=== PATIENT | male | born 1995 | race Caucasian/White ===

== ENCOUNTER 2018-05-11 17:37 | Emergency (ER) | payer OTHER ==
--- NOTE | 2018-05-11 18:07 | ER Document Report ---
HPI - HPI Patient complains to provider of: Laceration to left knee Time Seen by Provider: 05/11/18 17:53 Onset: Other - 05/01/2018 Quality of pain: Achy Pain Level: 1 Context: Patient states that he cut his left knee with a chain saw on 05/01/2018. Patient states that he initially had the 3 separate lacerations sutured. 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 Patient states that sutures were removed yesterday and then 2 of the lacerations opened up. Patient states he is here to have the wound resutured. Patient's tetanus immunization is currently up-to-date. Associated Symptoms: Other - Wound dehiscence Exacerbated by: Movement Relieved by: Denies Similar symptoms previously: No Recently seen / treated by doctor: Yes - ROS ROS below otherwise negative: Yes Systems Reviewed and Negative: Yes All other systems reviewed and negative - CONSTITUTIONAL Constitutional: DENIES: Fever - NEURO Neurology: DENIES: Weakness - MUSCULOSKELETAL Musculoskeletal: REPORTS: Extremity pain - DERM Skin Problems: Laceration Past Medical History - General Information source: Patient - Social History Smoking Status: Never Smoker Frequency of alcohol use: None Drug Abuse: None Occupation: Active duty Lives with: Spouse/Significant other Family History: Reviewed & Not Pertinent - Medical History Medical History: Negative Surgical Hx: Negative - Immunizations Hx Diphtheria, Pertussis, Tetanus Vaccination: Yes Vertical Provider Document - CONSTITUTIONAL Agree With Documented VS: Yes General Appearance: WD/WN, No Apparent Distress - INFECTION CONTROL TRAVEL OUTSIDE OF THE [place] IN LAST 30 DAYS: No - HEENT HEENT: Atraumatic, Normocephalic - NECK Neck: Normal Inspection - RESPIRATORY Respiratory: No Respiratory Distress - BACK Back: Normal Inspection - MUSCULOSKELETAL/EXTREMETIES Musculoskeletal/Extremeties: MAEW, Tender - left knee - NEURO Level of Consciousness: Awake, Alert, Appropriate Motor/Sensory: No Motor Deficit - DERM Integumentary: Warm, Dry, Laceration - Patient with 3, 2 cm lacerations over left knee, the most medial 2 lacerations have dehisced Course - Vital Signs Vital signs: Temp Pulse Resp BP Pulse Ox 98.4 F 84 14 147/79 H 99 05/11/18 17:45 05/11/18 17:45 12/01/18 17:45 05/11/18 17:45 05/11/18 17:45 Procedures - Immobilization Left Knee Pre-Proc Neuro Vasc Exam: Normal Immobilizer type: Thee wrap Performed by: PCT Post-Proc Neuro Vasc Exam: Normal Alignment checked and good: Yes Discharge - Discharge Clinical Impression: Wound dehiscence Knee laceration Qualifiers: Encounter type: initial encounter Laterality: left Qualified Code(s): S81.012A - Laceration without foreign body, left knee, initial encounter Condition: Stable Disposition: HOME, SELF-CARE Instructions: Non-Sutured Laceration ([facility]), Care of Steri-Strip Closure ([facility]) Additional Instructions: Return immediately for any new or worsening symptoms Followup with your primary care provider, call tomorrow to make a followup appointment Keep area clean and dry, avoid flexing the knee to prevent any further dehiscence of the wounds Perform daily dressing changes to the left knee Referrals: [facility] [Provider Group] - Follow up as needed
[2018-05-11 18:58] VITALS: BP 150/77
== END 2018-05-11 19:03 | disposition home or self-care (01) ==
LOC: ER 17:37
DX: T81.31XA Disruption of external operation (surgical) wound, not elsewhere classified, initial encounter (principal); Y83.8 Other surgical procedures as the cause of abnormal reaction of the patient, or of later complication, without mention of misadventure at the time of the procedure
CPT/HCPCS: 99282